=== PATIENT | female | born 1980 | race Caucasian/White ===

== ENCOUNTER → 2018-04-05 | Outpatient (CLI) | payer OTHER ==
[~2018-04-05] MED LIST: BUPR150T15 PO; VARE1TAB21 PO
[2018-04-05 15:21] LABS: BASO # 0.1 x10^3/uL (0.0-0.2); BASO % 1 % (0-3); EOS # 0.2 x10^3/uL (0.0-0.7); EOS % 2 % (0-3); HEMATOCRIT 41.9 % (36.0-47.0); HEMOGLOBIN 13.7 g/dL (12.0-15.5); LYMPH # 2.5 x10^3/uL (1.0-4.8); LYMPH % 22 % (24-48); MEAN CORPUSCULAR HEMOGLOBIN 29 pg (25-35); MEAN CORPUSCULAR HGB CONC 33 g/dL (31-37); MEAN CORPUSCULAR VOLUME 87 fL (79-100); MONO # 0.6 x10^3/uL (0.0-1.1); MONO % 5 % (0-9); NEUT % 71 % (31-73); PLATELET COUNT 302 x10^3/uL (140-400); RED CELL DISTRIBUTION WIDTH 12.9 % (11.5-14.5); WHITE BLOOD COUNT 11.3 x10^3/uL (4.0-11.0)
[2018-04-05 15:48] LABS: BILIRUBIN,URINE NEGATIVE (NEG); CLARITY,URINE CLEAR; COLOR,URINE YELLOW; NITRITE,URINE NEGATIVE (NEG); PROTEIN,URINE NEGATIVE (NEG-TRACE); UROBILINOGEN,URINE 0.2 mg/dL (0.2 mg/dL)
--- NOTE | 2018-04-05 15:54 | RAD ---
AP and Lateral Views of the Chest 04/05/2018 2:49 PM Indication: PRE OP HYSTERECTOMY ON 04/12/18 Comparison: Chest radiograph, February 13, 2005 Findings: There is new right middle lobe consolidation and volume loss with associated tenting of the right hemidiaphragm. No pneumothorax or effusion is seen. Small calcified granuloma in the right upper lung is stable. Heart size is normal. Bony thorax is intact. IMPRESSION: Right middle lobe volume loss and consolidation, new from prior study.. Findings could represent pneumonia, an obstructive process including central obstructing lesion, or chronic middle lobe volume loss. Recommend CT imaging for further evaluation. Electronically signed by: Deshawn Yost MD (04/05/2018 3:51 PM) [facility]
[2018-04-05 16:00] LABS: ALBUMIN 3.2 g/dL (3.4-5.0); ALBUMIN/GLOBULIN RATIO 0.8 (1.0-1.7); CALCIUM 8.8 mg/dL (8.5-10.1); CREATININE 0.7 mg/dL (0.6-1.0); GFR 94.2; POTASSIUM 3.2 mmol/L (3.5-5.1); TOTAL BILIRUBIN 0.4 mg/dL (0.2-1.0); TOTAL PROTEIN 7.1 g/dL (6.4-8.2)
[2018-04-05 16:08] LABS: BACTERIA,URINE FEW /HPF (0-FEW); RBC,URINE 0 /HPF (0-2); SQUAMOUS EPITHELIAL CELL,UR MANY /LPF; WBC,URINE 0 /HPF (0-4)
--- NOTE | 2018-04-06 13:26 | NUR ---
FAXED PRE - OP TEST REPORT'S TO 'S OFFICE FOR REVIEW AT 1002 AND RECEIVED TRANSMITTAL CONFIRMATION. CALLED CHARITO ALVARES AND INFORMED OF FAXING PRE - OP TEST REPORTS AND WITH RECOMMENDATION FROM RADIOLOGY ON CHEST XR REPORT AND POTASSIUM A LITTLE ABNORMAL (3.2) AT 1055 04/06/18.
--- NOTE | 2018-04-06 16:41 | NUR ---
ORDERED POTASSIUM 10 MEQ.DAILY AND ALSO PATIENT WILL HAVE CT OF CHEST ORDERED PER GIORGIO, SUPERVISOR LITHARGE AT 1540 04/06/2018.
--- NOTE | 2018-04-10 18:06 | NUR ---
FAXED CT OF CHEST REPORT TO FOR REVIEW 04/10/2018 AT 1805 AND RECEIVED TRANSMITTAL CONFIRMATION.
--- NOTE | 2018-04-17 18:48 | NUR ---
PATIENT SURGERY 04/12/2018 CANCELLED D/T ABNORMAL CT OF CHEST PER . CHART SEND TO MEDICAL RECORDS.
== END | disposition home or self-care (01) ==
LOC: SURGPAT 14:42
PROVIDERS: ATTEND Obstetrics & Gynecology
DX: J45.909 Unspecified asthma, uncomplicated (principal); Z88.1 Allergy status to other antibiotic agents; Z91.040 Latex allergy status
CPT/HCPCS: 36415; 71046; 80053; 81001; 85025

== ENCOUNTER → 2018-04-10 | Outpatient (CLI) | payer OTHER ==
[~2018-04-10] MED LIST changes: +CONTRAST GIVEN. MC PRN; +IOHEXOL 300 MG/ML 100ML VIAL. IV ONE
--- NOTE | 2018-04-10 14:33 | RAD ---
EXAM: CT Chest with IV contrast CLINICAL HISTORY: Abnormal chest x-ray COMPARISON: 04/05/2017, 02/13/2005 TECHNIQUE: CT of the chest following the administration of intravenous contrast. Axial, coronal and sagittal reformatted images were generated. ---PQRS compliance statement - One or more of the following individualized dose reduction techniques were utilized for this study: 1. Automated exposure control 2. Adjustment of the mA and/or kV according to patient size 3. Use of iterative reconstruction technique--- FINDINGS: CHEST: The heart is not enlarged. No pericardial effusion. No axillary lymphadenopathy. A few prominent mediastinal and hilar lymph nodes are seen including a subcarinal lymph node which measures 9 mm in short axis. No mediastinal or hilar lymphadenopathy by size criteria. No pleural effusion or pneumothorax. As seen on prior chest radiograph, there is volume loss of the middle lobe suggesting segmental atelectasis. Associated air bronchograms are seen. No definite proximal obstructing mass is definitively identified. Visualized Upper abdomen: Hepatic hypoattenuation, possibly related to phase of contrast or from fatty infiltration. Bones: Unremarkable IMPRESSION: Middle lobe parenchymal opacities with volume loss suggests segmental atelectasis without discrete obstructing mass. Although this may be a result of mucous plugging or chronic scarring, subtle endobronchial obstructing mass is not entirely excluded. Follow-up to resolution is recommended. Electronically signed by: Lupillo Stephenson MD (04/10/2018 2:30 PM) [facility]
== END | disposition home or self-care (01) ==
LOC: CT 10:54
PROVIDERS: ATTEND Obstetrics & Gynecology
DX: R93.89 Abnormal findings on diagnostic imaging of other specified body structures (principal); R59.0 Localized enlarged lymph nodes
CPT/HCPCS: 71260; Q9967

== ENCOUNTER → 2018-07-26 | Outpatient (CLI) | payer OTHER ==
[~2018-07-26] MED LIST changes: +BUDE10.2 IH; +BUPR75TA6 PO; +CETI10TA22 PO; -CONTRAST GIVEN. MC PRN; -IOHEXOL 300 MG/ML 100ML VIAL. IV ONE; +MONT10TA49 PO; +OMEP20CA10 PO
[2018-07-26 14:59] LABS: BASO # 0.1 x10^3/uL (0.0-0.2); BASO % 1 % (0-3); EOS # 0.1 x10^3/uL (0.0-0.7); EOS % 1 % (0-3); HEMATOCRIT 42.3 % (36.0-47.0); LYMPH # 3.5 x10^3/uL (1.0-4.8); LYMPH % 28 % (24-48); MEAN CORPUSCULAR HEMOGLOBIN 29 pg (25-35); MEAN CORPUSCULAR HGB CONC 33 g/dL (31-37); MEAN CORPUSCULAR VOLUME 86 fL (79-100); MONO # 0.7 x10^3/uL (0.0-1.1); MONO % 5 % (0-9); NEUT # 8.2 x10^3uL (1.8-7.7); NEUT % 65 % (31-73); PLATELET COUNT 308 x10^3/uL (140-400); RED CELL DISTRIBUTION WIDTH 12.3 % (11.5-14.5); WHITE BLOOD COUNT 12.5 x10^3/uL (4.0-11.0)
[2018-07-26 15:01] LABS: BILIRUBIN,URINE NEGATIVE (NEG); CLARITY,URINE CLEAR; COLOR,URINE YELLOW; NITRITE,URINE NEGATIVE (NEG); PH,URINE 5.5; PROTEIN,URINE NEGATIVE (NEG-TRACE); UROBILINOGEN,URINE 0.2 mg/dL (0.2 mg/dL)
[2018-07-26 15:04] LABS: BACTERIA,URINE MODERATE /HPF (0-FEW); SQUAMOUS EPITHELIAL CELL,UR MANY /LPF
[2018-07-26 15:05] LABS: RBC,URINE 0 /HPF (0-2); WBC,URINE OCC /HPF (0-4)
--- NOTE | 2018-07-26 15:18 | NUR ---
Patient was scheduled for hysterectomy in Mar 2018 which was cancelled for abnormal chest xray. Patient saw the dental technician,Dr Handley for follow up. She's had 3 bronchoscopies and getting worked up for right upper lung mass. Dr Handley is okay for the hysterectomy surgery before rest of the work up on the lung mass. Patient states that Dr Handley faxed over the the clearance note to Dr Vaughn's office. Called Dr Vaughn's office for the clearance note.
[2018-07-26 15:40] LABS: ALBUMIN 3.7 g/dL (3.4-5.0); GFR 62.4; POTASSIUM 3.7 mmol/L (3.5-5.1); TOTAL BILIRUBIN 0.3 mg/dL (0.2-1.0); TOTAL PROTEIN 7.3 g/dL (6.4-8.2)
--- NOTE | 2018-07-31 19:09 | NUR ---
FAXED PRE - OP TEST REPORTS TO 'S OFFICE AT 7195 07/27/2018 AND RECEIVED TRANSMITTAL CONFIRMATION. PATIENT'S MEDICAL CLEARANCE NOTES OF DR.GILLEN PCP ON CHART Addendum: 07/31/18 at 1915 by JUSTIN PRABHAKAR RN CORRECTION-PATIENT'S PULMONARY CLEARANCE NOTES OF ([facility]) ON CHART.
== END | disposition home or self-care (01) ==
LOC: SURGPAT 14:13
PROVIDERS: ATTEND Obstetrics & Gynecology
DX: Z01.818 Encounter for other preprocedural examination (principal); L91.8 Other hypertrophic disorders of the skin; Z91.040 Latex allergy status; Z88.1 Allergy status to other antibiotic agents
CPT/HCPCS: 36415; 80053; 81001; 85025; 87086

== ENCOUNTER 2018-08-03 06:06 | Observation (INO) | payer OTHER ==
[~2018-08-03] VITALS: Ht 152.4 cm; Wt 95.5 kg
[2018-08-03] VITALS (7 sets, daily range): BP systolic 86–120; BP diastolic 52–86
[2018-08-03] MEDS ORDERED: ESTROGENS, CONJ VAGINAL CREAM 30GM TUBE. ONE (06:10)
[2018-08-03] MEDS ORDERED: BUPIVACAINE-EPI 0.25%-1:200000 MPF 30 ML VIAL. ONE (06:10)
[2018-08-03] MEDS ORDERED: SILVER NITRATE STICK TP ONE (06:52)
[2018-08-03] MEDS ORDERED: IV RINGERS,LACTATED 1000ML 1,000 ML IV SCH (07:00)
[2018-08-03] MEDS ORDERED: HYDROmorphone 2 MG/ML VIAL IV PRN (07:00)
[2018-08-03] MEDS ORDERED: PROCHLORPERAZINE 10 MG/2 ML VIAL. IV PRN (07:00)
[2018-08-03] MEDS ORDERED: LIDOCAINE 1% PF 2 ML VIAL. ID PRN (07:00)
[2018-08-03] MEDS ORDERED: ceFAZolin 2GM PREMIX 2 GM/50 ML BAG IV ONE (07:00)
[2018-08-03] MEDS ORDERED: fentaNYL PF VIAL 100 MCG/2 ML VIAL IV PRN (07:00)
[2018-08-03] MEDS ORDERED: ONDANSETRON PF 4 MG/2 ML VIAL. IV PRN ×2 (07:00→09:30)
[2018-08-03] MEDS ORDERED: MORPHINE SULFATE 2 MG/ML VIAL. IV PRN ×2 (07:00→09:30)
[2018-08-03] MEDS ORDERED: LIDOCAINE 2% PF 5 ML VIAL. ONE (07:10)
[2018-08-03] MEDS ORDERED: ROCURONIUM 50 MG/5 ML VIAL. ONE (07:10)
[2018-08-03] MEDS ORDERED: fentaNYL PF VIAL 100 MCG/2 ML VIAL ONE ×3 (07:10→09:44)
[2018-08-03] MEDS ORDERED: PROPOFOL 20 ML IV ONE (07:10)
[2018-08-03] MEDS ORDERED: ONDANSETRON PF 4 MG/2 ML VIAL. ONE (07:10)
[2018-08-03] MEDS ORDERED: DEXAMETHASONE SOD PHOS 4 MG/ML VIAL ONE ×2 (07:10→07:53)
[2018-08-03] MEDS ORDERED: MIDAZOLAM HCL/PF 2 MG/2 ML VIAL. ONE (07:10)
[2018-08-03] MEDS ORDERED: INDIGOTINDISULFONATE SODIUM 40 MG/5 ML AMPUL. IV ONE (07:15)
[2018-08-03 07:33] LABS: U PREG PATIENT NEGATIVE (NEG)
[2018-08-03] MEDS ORDERED: GLYCOPYRROLATE 1 MG/5 ML VIAL. ONE (08:27)
[2018-08-03] MEDS ORDERED: NEOSTIGMINE METHYLSULFATE 5 MG/5 ML SYRINGE. ONE (08:27)
[2018-08-03] MEDS ORDERED: CETIRIZINE HCL 10 MG TABLET. PO SCH (09:00)
[2018-08-03] MEDS ORDERED: buPROPion 75 MG TABLET. PO SCH (09:00)
[2018-08-03] MEDS ORDERED: DESFLURANE 61 TO 120 MINUTES IH ONE (09:15)
[2018-08-03] MEDS ORDERED: HYDROcodone/APAP 5/325MG 1 TAB TABLET PO PRN (09:30)
[2018-08-03] MEDS ORDERED: oxyCODONE/APAP 5/325 1 TAB TABLET PO PRN (09:30)
[2018-08-03] MEDS ORDERED: SIMETHICONE 80 MG TAB.CHEW PO PRN (09:30)
[2018-08-03] MEDS ORDERED: diphenhydrAMINE 50 MG/ML VIAL IV PRN (09:30)
[2018-08-03] MEDS ORDERED: CALCIUM CARBONATE 500 MG TAB.CHEW PO PRN (09:30)
[2018-08-03] MEDS ORDERED: LACTULOSE 20 GM/30 ML SOLUTION. PO PRN (09:30)
[2018-08-03] MEDS ORDERED: 0.9 % SODIUM CHLORIDE 10 ML DISP.SYRIN. IV PRN (09:30)
[2018-08-03] MEDS ORDERED: MAG HYDROX/ALUMINUM HYD/SIMETH 30 ML ORAL.SUSP PO PRN (09:30)
[2018-08-03] MEDS ORDERED: KETOROLAC 30 MG/ML VIAL. IV PRN (09:30)
[2018-08-03] MEDS ORDERED: MAGNESIUM HYDROXIDE 2,400 MG/30 ML ORAL.SUSP. PO PRN (09:30)
[2018-08-03] MEDS ORDERED: NALOXONE 0.4 MG/ML VIAL. IV PRN (09:30)
[2018-08-03] MEDS ORDERED: ZOLPIDEM 5 MG TABLET. PO PRN (09:30)
[2018-08-03] MEDS ORDERED: diphenhydrAMINE HCL 25 MG CAPSULE PO PRN (09:30)
--- NOTE | 2018-08-03 09:33 | PDOC ---
BRIEF OPERATIVE NOTE Date: Aug 03, 2018 Pre-Op Diagnosis menorrhagia, dysmenorrhea Post-Op Diagnosis same Procedure Performed LAVH and removal of [address] Radha Vaughn Mottler Machine Feeder KWADWO Bender Anesthesiologist Dr. Blakely Anesthesia Type: General Blood Loss 100cc IV Fluid 750cc Urine Output 100cc clear via buckner Specimens Obtained cervix/uterus (previous prior salpingectomy) Findings enlarged RV uterus, no tubes, normal ovaries, mild bowel adhesions Complications none Operative Note [id number] RADHA VAUGHN MD Aug 03, 2018 09:33
[2018-08-03] MEDS: fentaNYL PF VIAL 100 MCG/2 ML VIAL IV PRN ×2 (09:47→10:03)
[2018-08-03] MEDS ORDERED: AMMONIA AROMATIC 15% INHALANT AMPUL. ONE ×2 (10:47→11:00)
--- NOTE | 2018-08-03 10:58 | OP ---
DATE OF SURGERY: 08/03/2018 PREOPERATIVE DIAGNOSES: Menorrhagia, dysmenorrhea. POSTOPERATIVE DIAGNOSES: Menorrhagia, dysmenorrhea. PROCEDURE: 1. Laparoscopic-assisted vaginal hysterectomy. 2. Removal of 2 skin tags. SURGEON: Violeta Vaughn M.D. GRAIN HANDLER: MACO Harrell. ANESTHESIOLOGIST: Ruddy Blakely M.D. ANESTHESIA: General. ESTIMATED BLOOD LOSS: 100 mL. URINE OUTPUT: 100 mL clear via To catheter. IV FLUIDS: 750 mL of Crystalloid. SPECIMENS: Cervix, uterus with a previous prior salpingectomy. FINDINGS: An enlarged retroverted uterus. No tubes from her prior salpingectomy. Normal ovaries. Mild bowel adhesions from prior surgeries. COMPLICATIONS: None. DESCRIPTION OF PROCEDURE: This patient was taken to the operating room where general anesthesia was placed. Before she was placed in lithotomy position, she was just frog legged. The 2 skin tags were prepped with Betadine, clipped at the skin. The one on the right on her thigh was not bleeding at all and left alone. The one on the left, just lateral to the buttocks, was a little larger base and silver nitrate was used at the base with excellent hemostasis. At this point, she was placed in Terry stirrups and then her abdomen and vagina were prepped and draped in the normal sterile fashion and a To catheter was inserted under sterile technique. Before even the skin tag removal, timeout was performed with everyone present and she had received her preoperative antibiotics. So, when she was prepped and draped in lithotomy, a bivalve speculum was placed in the patient's vagina. A single-tooth tenaculum was used to grasp the anterior lip of the cervix. A 10 mL of 0.25% Marcaine with epinephrine was used to circumferentially inject around the cervix for both hemodissection and hemostatic purposes later. The Valtchev uterine manipulator was placed through the endocervical os, locked on the single tooth tenaculum and the bivalve speculum was then removed. Top gloves were discarded and changed. Attention was then turned to the abdomen where a small infraumbilical skin incision was made over the existing scar. A curved Simona was used to dissect through the subcuticular layer to the fascia. The 5 mm Visiport was used to directly enter the abdominal cavity. Opening patient pressure was 4-5 mmHg. Carbon dioxide gas was used to then appropriately insufflate the abdominal cavity to maintain a pressure of 15 mmHg. The patient was placed in Trendelenburg position. A left lower quadrant port was placed after transilluminating the abdomen making sure it was clear of any adhesions beneath and any vasculature above, making a small incision and 4-5 mL of air was placed in the cuff. The camera then was moved to that port to look at the umbilical port making sure it was clear. Once that was assured, 4-5 mL of air was placed in that cuff as well. Then the right lower quadrant port was placed. I went ahead and just made an incision over her appe line since she already had a scar there and it was clear of adhesions, made a small incision and placed the 5 mm trocar through. Once this was done, the patient was in complete Trendelenburg. There were no tubes from a previous salpingectomy. She had some mild bowel adhesions on the left, but it was well above where we were operating. So, these were left alone. The right utero-ovarian pedicle was crossed cauterizing and cutting in a stepwise fashion crossing the right round ligament as well. This was done exactly the same on the left, crossing the left utero-ovarian pedicle as in the left round ligament. The bladder flap was created sharply by pushing the uterus cephalad to the head and elevating the bladder flap with the [place] and using the monopolar hook to cut across and gently pull down. The bladder came down very nicely and very easily. So, the uterine vessels were obtained on both sides with the LigaSure and then hugging the cervix, going down to the uterosacrals bilaterally. The cervix was completely free and blanched. There were no adhesions posteriorly. The blood supply was obtained. So, at this point, all instruments were removed from the abdomen and attention was turned vaginally. The single tooth and Valtchev were removed. A weighted speculum was placed in the patient's vagina. Thyroid Everardo clamps were placed on the anterior and posterior lips of the cervix respectively. A scalpel was used to make a circumferential incision in the cervix. An open Ray-Rafi 4 x 4 was used to gently push up the anterior bladder peritoneum and the anterior cul-de-sac was easily entered. The Ray-Rafi was removed and a curved Martin was placed in the anterior cul-de-sac. The cervix was elevated and the posterior cul-de-sac was sharply entered with the Polanco scissors. A #0 Vicryl stitch was used to secure the posterior peritoneum here to the vaginal cuff. It was tagged with a curved Simona clamp and the needle was cut and passed off. The short weighted vaginal speculum was removed and replaced with the long weighted Sudeep speculum in the posterior cul-de-sac. Curved Lety clamps x 2 were placed on the patient's left uterosacral ligament where they were doubly clamped with curved Lety's, cut with curved Polanco scissors and suture ligated x 2 with 0 Vicryl, taking the second one through the vaginal cuff securing uterosacral ligament to the vaginal cuff, tagging it with a straight Simona clamp and cutting and passing the needle off. This was done exactly the same on the right side, double clamping the uterosacrals with curved Lety's, cutting with Polanco scissors, suture ligating x 2 with 0 Vicryl, taking the second one through the vaginal cuff, securing uterosacral ligament to the vaginal cuff, tagging it with a straight Simona clamp and cutting and passing the needle off. The remaining pedicle on both sides was delineated with a curved mixture, right angle, and the vaginal LigaSure was used to cauterize and cut. The cervix and uterus were delivered in total and passed off for permanent pathology. The long Allis was used to grasp the anterior bladder peritoneum. There was a vessel on the left side that was easily identified, grasped with a burlisher and cauterized behind it with excellent results. A sponge stick was used to examine the pedicles. Once they were assured to be hemostatic, long weighted Sudeep speculum was taken out and replaced with the short weighted vaginal speculum. 2-0 Vicryl was taken through the anterior bladder peritoneum, left uterosacral ligament, posterior peritoneum and right uterosacral ligament, thus closing the peritoneum in a pursestring like fashion. Once this was done, the right and left uterosacral tags were clipped. The vaginal cuff was closed in an anterior to posterior running locked fashion and tied to the posterior cuff tag. There was absolutely no bleeding vaginally, so all instruments were removed. Initial counts were correct x 2 by OR personnel before going above upon closing the peritoneum and before closing the cuff. So, once everything was done here, after sponge, lap and needle counts were correct, all gloves were discarded and changed and attention was turned back above for a second look. There was some slight bleeding on the right ovary that was easily obtained with the LigaSure. Copious irrigation revealed hemostasis. Tisseel was placed over all the pedicles with excellent results. The right and left trocar cuffs were deflated from the air. They were removed under direct visualization and were hemostatic. The vaginal cuff and ovaries were hemostatic and the 4-5 mL of air was taken out of the umbilical port as well. Gas was released from the umbilical port. Once it was removed, 4-0 Monocryl was used to close all the trocars with 4-0 Monocryl was used to close the port sites with Steri-Strips Once this was done, the patient was awakened from anesthesia and brought to recovery room in stable condition. VIOLETA VAUGHN MD DR: KAREN/amanda JOB#: [id number] / [id number]
[2018-08-03] MEDS ORDERED: PANTOPRAZOLE 40 MG TABLET.DR. PO SCH (11:30)
[2018-08-03] MEDS ORDERED: MONTELUKAST SODIUM 10 MG TABLET. PO SCH (21:00)
--- NOTE | 2018-08-04 17:06 | PATHOLOGY ---
[facility] Accession Number: [id number] . 01 Material submitted: . uterus - CERVIX, UTERUS . 01 Clinical history: . Menorrhagia. . 02 Diagnosis: Uterus, hysterectomy: - Adenomyosis, uterine corpus, subbasal and subserosal, focal, with mild myometrial hypertrophy (uterine weight 156 grams). - Hypercornification and mild chronic inflammation of exocervix. - Chronic cervicitis with multifocal squamous metaplasia. - Nabothian cyst, cervix. - Early secretory endometrium. (JPM:franchesca; 08/04/2018) MBR/08/04/2018 . 02 Comment: There is no evidence of hyperplasia or malignancy. (JPM:franchesca; 08/04/2018) . 02 Electronically signed: . Chandler Chapman MD, Pathologist NPI- [id number] . 01 Gross description: . Received in formalin labeled "Kartik, Sandra, cervix, uterus" is a hysterectomy specimen without attached fallopian tubes and ovaries. The specimen weighs 156 g and measures 10.2 cm from fundus to cervix, 6.9 cm from cornu to cornu, and 5.3 cm from anterior to posterior. The uterine serosa is pink-red with focal hemorrhagic areas and a 0.6 cm elena-white adhesion on the posterior surface. The ectocervix is pink-elena and glistening with a slitlike cervical os measuring 1.5 cm. The specimen is opened to reveal a 4.5 x 2.5 cm endometrial cavity and a 3.0 x 0.7 cm endocervical canal. The specimen is serially sectioned to reveal an average endometrial thickness of 0.3 cm and an average myometrial thickness of 2.4 cm. No leiomyomata are identified. Campground Caretaker sections of the specimen are submitted as follows: A1 12:00 cervix A2 6:00 cervix A3 anterior endomyometrium A4 posterior endomyometrium A5 serosal adhesion ([facility] [place]; 08/03/2018) SYC/SYC . 02 Pathologist provided ICD-10: N80.0, N72, N88.8 . 02 CPT . 836595 Specimen Comment: A courtesy copy of this report has been sent to Specimen Comment: [phone]. Specimen Comment: Report sent to Performed at: 01 [facility] [address] [id number] MD Sedrick Aranda MD Phone: [phone] Performed at: 02 [facility] [address] [place], [place] [id number] MD Chandler Chapman MD Phone: [phone]
== END 2018-08-03 17:54 | disposition home or self-care (01) ==
LOC: SURG 06:06 → 3 NORTH 09:24
PROVIDERS: ADMIT Obstetrics & Gynecology; ATTEND Obstetrics & Gynecology
DX: N92.0 Excessive and frequent menstruation with regular cycle (principal); N94.6 Dysmenorrhea, unspecified; N85.4 Malposition of uterus; J45.909 Unspecified asthma, uncomplicated; F98.8 Other specified behavioral and emotional disorders with onset usually occurring in childhood and adolescence; F17.210 Nicotine dependence, cigarettes, uncomplicated; Z90.49 Acquired absence of other specified parts of digestive tract; Z98.890 Other specified postprocedural states; N85.02 Endometrial intraepithelial neoplasia [EIN]
CPT/HCPCS: 36415; 58550; 81025; 86850; 86900; 86901; 96374; 96375; A7015; G0378; G0379; J0696; J1100; J1885; J2001; J2250; J2405; J2704; J2710; J3010; J3490; J7030